=== PATIENT | female | born 1990 | race African-American/Black ===

== ENCOUNTER 2023-11-23 14:21 | Emergency (ER) | payer OTHER ==
[~2023-11-23] VITALS: Ht 165.1 cm; Wt 68.0 kg
[2023-11-23] MEDS ORDERED: predniSONE 20 MG TABLET ONE (14:54)
[2023-11-23] MEDS ORDERED: methylPREDNISolone ACETATE 40 MG VIAL IM ONE (15:00)
[2023-11-23] MEDS ORDERED: methylPREDNISolone ACETATE 80 MG VIAL ONE (15:00)
[2023-11-23] MEDS ORDERED: predniSONE 20 MG TABLET PO ONE (15:00)
[2023-11-23] MEDS ORDERED: SELE120S3 TP (15:04)
[2023-11-23] MEDS ORDERED: diphenhydramine PO (15:04)
[2023-11-23] MEDS ORDERED: PRED50TA PO (15:04)
[2023-11-23 15:15] VITALS: BP 128/80; TEMP 97.4; O2SAT 100
== END 2023-11-23 15:16 | disposition home or self-care (01) ==
LOC: ER 14:27
DX: L42 Pityriasis rosea (principal); Z79.899 Other long term (current) drug therapy; Z60.2 Problems related to living alone
CPT/HCPCS: 99283; 96372; J7512; J1040; A4606; A4663

== ENCOUNTER 2025-01-18 09:09 | Emergency (ER) | payer OTHER ==
[~2025-01-18] VITALS: Ht 165.1 cm; Wt 59.0 kg
[~2025-01-18 09:09] MED LIST: PRED50TA PO; SELE120S3 TP; diphenhydramine PO
[2025-01-18] MEDS ORDERED: CEphaleXIN 500 MG CAPSULE ONE (09:47)
[2025-01-18] MEDS ORDERED: predniSONE 50 MG TABLET ONE (09:47)
[2025-01-18] MEDS: predniSONE 50 MG TABLET PO ONE (09:48)
[2025-01-18] MEDS: CEphaleXIN 500 MG CAPSULE PO ONE (09:48)
[2025-01-18] MEDS ORDERED: NEOMY/BACITRA/POLYMYXIN B OINT UD PACKET TP ONE (09:48)
[2025-01-18] MEDS: NEOMY/BACITRA/POLYMYXIN B OINT UD PACKET TP ONE (09:48)
[2025-01-18] MEDS ORDERED: CEPH500C2 PO (09:50)
[2025-01-18] MEDS ORDERED: PROM118S5 PO (09:50)
[2025-01-18 10:00] VITALS: BP 117/76; TEMP 98.6; O2SAT 99
== END 2025-01-18 10:01 | disposition home or self-care (01) ==
LOC: ER 09:09
DX: J45.909 Unspecified asthma, uncomplicated (principal); L08.9 Local infection of the skin and subcutaneous tissue, unspecified; F17.200 Nicotine dependence, unspecified, uncomplicated; Z79.52 Long term (current) use of systemic steroids
CPT/HCPCS: 99283; 16020; J7512; A4606; A4663

== ENCOUNTER 2025-08-13 18:15 | Emergency (ER) | payer OTHER ==
[~2025-08-13] VITALS: Ht 165.1 cm; Wt 59.0 kg
[~2025-08-13 18:15] MED LIST changes: +CEPH500C2 PO; +PROM118S5 PO
[2025-08-13 18:23] VITALS: BP 105/55
[2025-08-13] MEDS ORDERED: NEOMY/BACITRA/POLYMYXIN B OINT UD PACKET TP ONE (18:34)
[2025-08-13] MEDS: NEOMY/BACITRA/POLYMYXIN B OINT UD PACKET TP ONE (18:50)
[2025-08-13] MEDS ORDERED: CYCL5TAB PO (20:10)
[2025-08-13] MEDS ORDERED: IBUP-1955 PO (20:10)
[2025-08-13 20:22] VITALS: BP 110/62; O2SAT 97
== END 2025-08-13 20:23 | disposition home or self-care (01) ==
LOC: ER 18:21
DX: S53.401A Unspecified sprain of right elbow, initial encounter (principal); S43.401A Unspecified sprain of right shoulder joint, initial encounter; S50.811A Abrasion of right forearm, initial encounter; S40.021A Contusion of right upper arm, initial encounter; S20.213A Contusion of bilateral front wall of thorax, initial encounter; J45.909 Unspecified asthma, uncomplicated; F17.200 Nicotine dependence, unspecified, uncomplicated; Z79.52 Long term (current) use of systemic steroids; V89.2XXA Person injured in unspecified motor-vehicle accident, traffic, initial encounter; Y93.89 Activity, other specified; Y92.410 Unspecified street and highway as the place of occurrence of the external cause; Y99.9 Unspecified external cause status
CPT/HCPCS: 71111; 73030; 73080; A4606; A4663